=== PATIENT | female | born 1990 | race Two or more races ===

== ENCOUNTER → 2019-09-29 | Outpatient (CLI) | payer OTHER | END | disposition home or self-care (01) | LOC: PRENATAL 08:43 | DX: Z36.82 Encounter for antenatal screening for nuchal translucency (principal); O36.80X1 Pregnancy with inconclusive fetal viability, fetus 1; Z3A.12 12 weeks gestation of pregnancy ==

== ENCOUNTER 2021-08-28 19:53 | Inpatient (IN) | payer OTHER ==
[~2021-08-28] VITALS: Ht 170.2 cm; Wt 63.0 kg
[2021-09-01] MEDS ORDERED: EC-NAPROSYN375 MG PO (12:45)
[2021-09-01] MEDS ORDERED: ULTRACET PO (12:45)
[2021-09-01] MEDS ORDERED: TANDEM PLUS CA1 EACH PO (12:48)
[2021-09-01] MEDS ORDERED: COLACE100 MG PO (12:49)
== END 2021-09-01 13:43 | disposition home or self-care (01) | DRG 817 ==
LOC: ER → SEC-K 08-29 06:14 → O/R 08-29 08:32 → OB/GYN 08-31 12:53
PROVIDERS: ADMIT Obstetrics & Gynecology; ATTEND Obstetrics & Gynecology
PROC: 0UB54ZZ Excision of Right Fallopian Tube, Percutaneous Endoscopic Approach (ICD-10-PCS; 2021-08-29)
PROC: 0W9J4ZZ Drainage of Pelvic Cavity, Percutaneous Endoscopic Approach (ICD-10-PCS; 2021-08-29)
PROC: 0UDB8ZX Extraction of Endometrium, Via Natural or Artificial Opening Endoscopic, Diagnostic (ICD-10-PCS; 2021-08-29)
PROC: 10T24ZZ Resection of Products of Conception, Ectopic, Percutaneous Endoscopic Approach (ICD-10-PCS; principal; 2021-08-29 08:00)
PROC: 30233N1 Transfusion of Nonautologous Red Blood Cells into Peripheral Vein, Percutaneous Approach (ICD-10-PCS; 2021-08-30)
DX: O00.101 Right tubal pregnancy without intrauterine pregnancy (principal); K66.1 Hemoperitoneum; D62 Acute posthemorrhagic anemia; D50.8 Other iron deficiency anemias